=== PATIENT | male | born 1995 | race American Indian/Alaskan Native ===

== ENCOUNTER 2021-10-30 16:14 | Emergency (ER) | payer BC ==
[2021-10-30 16:54] VITALS: BP 114/70
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
[2021-10-30] MEDS ORDERED: LIDOCAINE 1%/EPINEPHRINE 1:100,000 VIAL (20 ML) INFILTRATI ONE (21:43)
[2021-10-30] MEDS ORDERED: cephALEXin 500 MG CAP PO ONE (21:43)
[2021-10-30] MEDS ORDERED: traMADol 50 MG TAB PO ONE (21:43)
[2021-10-30] MEDS ORDERED: TETANUS,DIPH,PERTUSS(ACELL) VACCINE 0.5 ML SYRINGE IM ONE (22:00)
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
[2021-10-30] MEDS ORDERED: LIDOCAINE-MPF (1%) 10 MG/1 ML VIAL 5 ML INFILTRATI ONE (22:28)
== END 2021-10-30 22:42 | disposition home or self-care (01) ==
LOC: ED 16:14
DX: S43.402A Unspecified sprain of left shoulder joint, initial encounter (principal); S00.83XA Contusion of other part of head, initial encounter; S10.93XA Contusion of unspecified part of neck, initial encounter; S00.03XA Contusion of scalp, initial encounter; Y08.89XA Assault by other specified means, initial encounter; Y93.89 Activity, other specified; Y92.89 Other specified places as the place of occurrence of the external cause; Y99.8 Other external cause status
CPT/HCPCS: 70486; 90471; 90715; 99283; J3490